=== PATIENT | female | born 1945 | race Caucasian/White ===

== ENCOUNTER 2016-11-28 20:27 | Emergency (ER) | payer OTHER ==
[~2016-11-28 20:27] MED LIST: ALBUTEROL 3 ML3 ML INH; AMLODIPINE10 MG PO; FENTANYL TR50 MCG/HR TD; HYDROMORPHONE HC2 MG PO; HYDROMORPHONE HY4 MG PO; MEDROL DOSEPAK1 PAC PO; NASONEX0.05 MG/Ac NAS; NOVAPLUS FE75 MCG/HR TOP; OXYBUTYNIN5 MG PO; PAROXETINE HYDR40 MG PO; PREDNISONE 10MG10 M1 PO; SPIRIVA1 PUF INH; SYMBICORT 160/41 PUF INH; VENTOLIN H0.09 MG/Ac INH; VIBRAMYCIN 100100 MG PO; ZITHROMAX Z-PA250 M1 PO
--- NOTE | 2016-11-28 20:46 | ED GENERAL ADULT ---
History of Present Illness General Chief Complaint: Altered Mental Status Stated Complaint: BIBA AMS Source: old records, EMS Exam Limitations: clinical condition Allergies Coded Allergies: Sulfa (Sulfonamide Antibiotics) (HIVES 11/12/15) cefazolin (UNKNOWN 11/12/15) ciprofloxacin (From CIPRO) (HIVES 11/12/15) phenytoin (HIVES 11/12/15) shellfish derived (HIVES 11/12/15) Reconcile Medications Albuterol Sulfate (Proventil) 2.5 MG/3 ML NEB 3 ML INH Q6-PRN sHORTNESS OF BREATH Amlodipine Besylate (Amlodipine) 10 MG TAB 1 TAB PO DAILY BP (Reported) Budesonide/Formoterol Fumara (Symbicort 160-4.5 Mcg Inhaler) 160 MCG/4.5 MCG PUF 2 PUF INH BID SHORTNESS OF BREATH Doxycycline (Vibramycin 100 MG Cap) 100 MG CAP 1 CAP PO BID Infection Stop taking this medication on after evening dose Fentanyl (Fentanyl Transdermal System) 50 MCG/HR TDM 1 PATCH TD DAILY PAIN MANAGEMENT HYDROMORPHONE HCL (Hydromorphone HCl) 2 MG TAB 1 TAB PO TID PAIN 5-10 Mometasone Furoate (Nasonex) 0.05 MG/Actuation SPR 2 SPRAY FELIPA DAILY SINUSITIS Oxybutynin Chloride 5 MG TAB 1 TAB PO DAILY PRN PAIN (Reported) PAROXETINE HCL (Paroxetine Hydrochloride) 40 MG TAB 1 TAB PO DAILY MENTAL HEALTH (Reported) Prednisone 10 MG TAB 1 TAB PO TAPER COPD 09/01/15 4 TABS 09/02/15-09/04/15 3 TABS 09/05/15-09/07/15 2 TABS 09/08/15-09/10/15 1 TAB AND THEN STOP TAKING THIS MEDICATION Tiotropium [place] (Spiriva) 1 PUF PUF 1 PUFF INH DAILY SHORTNESS OF BREATH Triage Nurses Notes Reviewed? yes HPI: Patient lives at home alone. Patient's neighbor checks on her every evening. Her neighbor saw her last night and everything was okay. Today the neighbor called the patient's brother stating that her paper was still outside of her house which was very unusual. The neighbor had gone over to the house multiple times during the doorbell with no answer. The neighbor called brother again this evening and he went over to check on her. He gained access to the house and found her face first on the bedroom floor in a pool of vomit. Patient had a GCS of 6 upon EMS arrival. Patient not following any commands and EMS was unable to obtain vital signs. Patient brought in for evaluation. Upon arrival to the emergency department the patient was found to be hypotensive and hypothermic. Patient had no gag reflex. Patient intubated for airway protection. Patient given Narcan without any change. (JJ LAURA,THOMAS Nascimento) Vital Signs & Intake/Output Vital Signs & Intake/Output Vital Signs Date Time Temp Pulse Resp B/P B/P Pulse O2 O2 Flow FiO2 Mean Ox Delivery Rate 11/29 0044 70 11/29 0010 45 11/29 0001 60/45 11/28 2221 52 24 97/49 98 Ventilator 45% 11/28 2214 75 11/28 2214 87/49 11/29 2203 92/54 11/28 2138 46 11/28 2125 72/48 11/28 2112 75 11/28 2109 78/56 11/28 2052 44 11/28 2026 40 22 82/64 Ventilator 75% 11/28 2026 94 Ventilator 75% ED Intake and Output 11/29 0000 11/28 1200 Intake Total Output Total 5 Balance -5 Output, Urine 5 ED Sepsis Exam Date of Focused Sepsis Exam: 11/28/16 Time of Focused Sepsis Exam: 2019 Sepsis Cardiac Exam: Regular Rate/Rhythm Sepsis Resp Exam: Ronchi Sepsis Cap Refill Exam: >2 sec Sepsis Peripheral Pulse Exam: Weak Sepsis Peripheral Pulse Location: Radial Sepsis Skin Color Exam: Cyanotic, Mottled, Pale Skin Temp/Moisture Exam: Cool/Dry (JJ LAURA,THOMAS Nascimento) Past History Travel History Traveled to [place] past 21 day No Medical History Any Pertinent Medical History? see below for history Neurological: NONE EENT: NONE Cardiovascular: hypertension Respiratory: COPD Gastrointestinal: GANGRENOUS COLON, HAS ILLEOSTOMY Hepatic: NONE Renal: OVERACTIVE BLADDER Musculoskeletal: NONE Psychiatric: depression Endocrine: NONE Blood Disorders: NONE Cancer(s): NONE History of MRSA: No History of VRE: No History of CDIFF: No Pneumonia Vaccine: 08/17/12 Influenza Vaccine: 05/06/15 Surgical History Surgical History: non-contributory Psychosocial History Who do you live with Patient/Self Services at Home None What is your primary language Turkish Tobacco Use: Current Daily Use ETOH Use: UNKNOWN Illicit Drug Use: UNKNOWN Family History Family History, If Any: FATHER FHx: lung cancer BROTHER FH: stroke SISTER Abdominal aortic aneurysm repair Hx Contributory? No (JJ LAURA,THOMAS Nascimento) Review of Systems Review of Systems Constitutional: Reports: see HPI. (JJ LAURA,THOMAS Nascimento) Physical Exam Physical Exam General Appearance: sedated, lethargic, severe distress Head: atraumatic Eyes: Bilateral: PERRL, EOMI. Ears, Nose, Throat: normal pharynx Neck: normal inspection, supple, full range of motion Respiratory: rhonchi, respiratory distress Cardiovascular: regular rate/rhythm Peripheral Pulses: 1+ radial (R), 1+ radial (L) Gastrointestinal: normal bowel sounds, soft, THERE IS BLOOD IN HER OSTOMY Extremities: slow capillary refill Neurologic/Psych: NO RESPONSE TO bABINSKI, REFLEXES ARE 1+, PATIENT WITHDRAWS TO PAIN Skin: cyanosis, mottled Lymphatic: no anterior cervical eboni Core Measures ACS in differential dx? Yes CVA/TIA Diagnosis: No Severe Sepsis Present: Yes BC x2: Yes Lactic Acid x2: Yes IV ABX Broad Spectrum: Yes NS/LR Started: Yes Septic Shock Present: Yes (JJ LAURA,THOMAS Nascimento) Progress Differential Diagnoses I considered the following diagnoses in my evaluation of the patient: [Septic shock, PR, rhabdomyolysis, drug intoxication, alcohol intoxication, trauma] Diagnostic Imaging: Viewed by Me: CT Scan. Discussed w/RAD: CT Scan. Radiology Impression: PATIENT: LEONARDO LEWIS PRESENT AGE: 71 PATIENT ACCOUNT NO: [id number] : 44 LOCATION: [facility] ORDERING PHYSICIAN: THOMAS GARDNER MD SERVICE DATE: 11/28/16 EXAM TYPE: CAT - CT CERV SPINE WO IV CONTRAST; CT HEAD WO IV CONTRAST EXAMINATION: CT HEAD WITHOUT CONTRAST CT CERVICAL SPINE WITHOUT CONTRAST CLINICAL INFORMATION: Unresponsive COMPARISON: CT head 07/10/2011. CT cervical spine 02/21/2014 TECHNIQUE: Imaging was performed from the skull base to vertex without intravenous administration of contrast. In addition, helical noncontrast CT imaging was acquired through the cervical spine and source images were reviewed along with axial reconstructions and sagittal and coronal MPRs. DLP: 939.68 mGy- cm FINDINGS: HEAD: Status post right parietal craniotomy. No intracranial mass, hemorrhage, or midline shift is visualized. No extra-axial collections are identified. There is atrophy with prominence of the ventricles and the sulci and hypodensity of the periventricular white matter due to chronic small vessel ischemic disease. There is vascular calcifications of the internal carotid arteries bilaterally. Air-fluid level in the right maxillary sinus. The mastoid air cells and middle ear cavities are normally aerated. Old fracture of the inferior floor of the left orbit unchanged since CAT scan 07/10/2011 CERVICAL SPINE: There are chronic changes. Patient has fusion with anterior plate and screw from C4 to C7. There is a nonunited transverse fracture through the base of the dens. There is transpedicular screws at C2-C3. There is degenerative change. There is endplate spurs of the vertebrae at C2-C3 and C3-C4 and C7-T1 and T1-T2. There is multilevel degenerative facet joint arthrosis most significant at the upper cervical spine bilaterally. There is no evidence of acute cervical spine fracture. No pre- or paravertebral soft tissue abnormality is identified. Endotracheal tube in place. There is bilateral apical pleural- parenchymal thickening with emphysematous lucencies of lungs. IMPRESSION: 1. Status post right parietal craniotomy. No acute intracranial pathology. Sinus disease. 2. No CT evidence of acute cervical spine fracture or traumatic subluxation. Status post multilevel cervical spine fusion. Old nonunited fracture of the dens. DICTATED BY: TAZ KAISER MD DATE/TIME DICTATED:11/28/162120 CADDY:ABAD DATE/TIME TRANSCRIBED:11/28/162120 CONFIDENTIAL, DO NOT COPY WITHOUT APPROPRIATE AUTHORIZATION. <Electronically signed in Other Vendor System> SIGNED BY: TAZ KAISER MD 11/28/162136 Initial ED EKG: NSR, nonspecific ST T wave chg Prior EKG: unchanged Rhythm Strip: normal sinus rhythm Comments: Patient's brother is at her bedside with paperwork showing that she would not want to be intubated, resuscitated or artificial hydration. At this point he would like to wait for her blood work and discussed with their other brother prior to making a decision about extubation. Discussed with radiologist. CAT scan of the chest abdomen pelvis has been read however there is a problem with system on viewing the dictated results. The ET tube is in proper placement. There are opacities in both lungs consistent with either multilobar pneumonia versus aspiration pneumonia. There is signs of chronic pancreatitis but no acute inflammation. There are multiple rib fractures of unknown age. There is one dilated loop of small bowel with an air- fluid level with no transition point. Clinically the patient appears to be going into DIC. Laboratory continues to refuse to run her blood work because they keep saying that her specimens were hemolyzed despite multiple different blood draws. The lab has been informed multiple times how septic the patient is an that clinically she appears to be in DIC. They continued to refuse to when the blood work. Lab findings and the potentially hemolyzed specimen. Patient is in DIC. Laboratory data shows rhabdomyolysis, multiorgan failure. This was discussed with the patient's 2 brothers. They then called her son in [place]. The decision is made to terminally extubate the patient. Patient extubated. The tremors have been turned off. The family is at the bedside. Patient given 2 mg of IV morphine. Patient went asystolic with no respirations. No heart sounds. Patient pronounced at 0 134 with family at bedside. (JJ LAURA,THOMAS Nascimento) Plan of Care: Orders Procedure Date/time Status EXTUBATE 11/29 0115 Complete ARTERIAL BLOOD GAS (GEN) 11/29 0045 Complete VENTILATOR PARAMETERS 11/29 0044 Complete ARTERIAL BLOOD GAS (GEN) 11/29 0015 Complete LACTIC ACID 11/29 0013 Active FIBRINOGEN LEVEL 11/28 2357 Active D-DIMER 11/28 2357 Active PARTIAL THROMBOPLASTIN TIME 11/28 223 Active PROTHROMBIN TIME 11/28 223 Active Restraint- Medical 11/28 2228 Active VENTILATOR PARAMETERS 11/28 2220 Complete VENTILATOR PARAMETERS 11/28 2145 Complete BLOOD CULTURE 11/28 211 Active LACTIC ACID 11/28 2112 Active ARTERIAL BLOOD GAS (GEN) 11/28 2042 Complete Telemetry/Class B Driver 11/28 204 Active [place], Insertion/Removal/Asses 11/28 2042 Active CULTURE,URINE 11/28 2042 Active URINE DRUGS OF ABUSE 11/28 2042 Active URINALYSIS 11/28 204 Complete TROPONIN LEVEL 11/28 204 Active ETHANOL 11/28 204 Active COMPREHENSIVE METABOLIC PANEL 11/28 204 Active CREATINE PHOSPHOKINASE 11/28 204 Active CBC WITHOUT DIFFERENTIAL 11/28 2042 Complete VENTILATOR PARAMETERS 11/29 2039 Complete EKG 04/24 2031 Active LACTIC ACID 11/28 2026 Active Current Medications Sig/Adele Start time Last Medication Dose Stop Time Status Admin Sodium Bicarbonate 150 MEQ Q13H 11/28 2144 AC 11/28 (Sodium Bicarbonate 2114 8.4%) Dextrose/Water 1,000 ML (D5W 1000) Norepinephrine 4 MG Q24H 11/28 2114 AC 11/28 (Levophed Drip) 2114 Sodium Chloride 250 ML (Normal Saline 0.9%) Laboratory Tests 11/29/16 0045: pH 6.87 *L, pCO2 83 *H, pO2 77 L, HCO3 15 L, ABG O2 Sat (Measured) 89.0 L, P- 50 (Temp Corrected) N, Carboxyhemoglobin 0.8 L, O2 Concentration % 70%, Temperature 98.6, Respiration Rate 26, O2 Delivery Method ESPRIT, Vent Mode AC, Expiratory Pressure 0, Tidal Volume 550, Phlebotomy Draw Site L FEM 11/29/16 0015: pH 6.87 *L, pCO2 88 *H, pO2 50 *L, HCO3 16 L, ABG O2 Sat (Measured) 73.0 L, P- 50 (Temp Corrected) N, Carboxyhemoglobin 1.4 L, O2 Concentration % 45%, Temperature 98.6, Respiration Rate 24, O2 Delivery Method ESPRIT, Vent Mode AC, Expiratory Pressure 0, Tidal Volume 550, Phlebotomy Draw Site RIGHT BRACHIAL 11/28/16 9895: Sodium Pending, Potassium Pending, Chloride Pending, Carbon Dioxide Pending, Anion Gap Pending, BUN Pending, Creatinine Pending, BUN/Creatinine Ratio Pending , Glucose Pending, Lactic Acid Pending, Calcium Pending, Total Bilirubin Pending , AST Pending, ALT Pending, Alkaline Phosphatase Pending, Creatine Kinase Pending, Troponin I Pending, Total Protein Pending, Albumin Pending, Globulin Pending, Albumin/Globulin Ratio Pending, Serum Alcohol Pending 11/28/16 2325: Fibrinogen Activity Cancelled, D-Dimer Cancelled 11/28/162134: pH 6.97 *L, pCO2 70 *H, pO2 415 H, HCO3 11 L, ABG O2 Sat (Measured) 96.0, P-50 (Temp Corrected) Y, Carboxyhemoglobin 1.4 L, O2 Concentration % 75%, Temperature 95.0 L, Respiration Rate 22, O2 Delivery Method ESPRIT VENT, Vent Mode AC, Tidal Volume 550, Phlebotomy Draw Site L FEM 11/28/162026: CBC w Diff MAN DIFF ORDERED, RBC 3.84 L, MCV 107.1 H, MCH 34.4 H, RDW 15.6 H , MPV 7.0 L, Segmented Neutrophils 74, Band Neutrophils 7 H, Lymphocytes 12 L , Monocytes 5, Metamyelocytes 2 H, Nucleated RBCs 1 H, Platelet Estimate VERIFIED BY SMEAR, Normochromic RBCs VERIFIED, Anisocytosis 1+, PUBS MCHC 32.1 L, Fld Total RBCs Counted 100 11/28/16 1105: Urinalysis MOD H, Urine Color FLORENCE, Urine Clarity CLDY H, Urine pH 6.0, Ur Specific [place] >= 1.030, Urine Protein >=300 H, Urine Ketones 15 H, Urine Nitrite NEG, Urine Bilirubin NEG, Urine Urobilinogen 0.2, Ur Leukocyte Esterase NEG, Ur Microscopic SEDIMENT EXAMINED, Urine RBC 1-3, Urine WBC RARE, Ur Epithelial Cells FEW, Urine Bacteria RARE H, Hyaline Casts 1-3 H, Urine Mucus FEW, Urine Hemoglobin LARGE H, Urine Glucose NEG Microbiology 11/28 2340 BLOOD: Blood Culture - RECD 11/28 2324 BLOOD: Blood Culture - RECD 11/28 2112 LOWER RESP: Respiratory Culture - CAN Cancelled: NUMBER OF SQUAMOUS CELLS INDICATES POOR QUALITY SPECIMEN 11/28 2112 LOWER RESP: Gram Stain - CAN Cancelled: NUMBER OF SQUAMOUS CELLS INDICATES POOR QUALITY SPECIMEN 11/28 2042 URINE ROUT: Urine Culture - ORD Departure Departure Disposition: Condition: Critical Clinical Impression Primary Impression: Septic shock Secondary Impressions: Multiple organ failure Referrals: NAHEED HURD MD (PCP/Family) Departure Forms: Customer Survey General Discharge Information (JJ LAURA,THOMAS Nascimento) Procedures Intubation Time of Intubation: 2029 Intubation Method: orotracheal Tube Size (cm): 7.5 Medications: ETOMIDATE Breath Sounds After Intubation: equal Intubation Complications: no complications Post Intubation Xray? Yes (CT SCAN) Progress: In-line C-spine stabilization maintained throughout intubation (JJ LAURA,THOMAS Nascimento) Central Line Central Line Lumen: triple Central Line Procedure: Yes: bentadine prep?, sterile drapes applied, sterile dressing applied. Central Line Position: femoral (R) Anesthesia: local Complications: none Central Line Post Position: sutured, good blood return Progress: Central line performed by KENY Pennington, RVU credit goes to KENY Pennington (MINGO BUSTILLO,LIYA) Critical Care Note Critical Care Note Critical Care Time: mins: (75 MIN) (JJ LAURA,THOMAS Nascimento)
--- NOTE | 2016-11-28 21:37 | CT SCAN REPORT ---
EXAMINATION: CT HEAD WITHOUT CONTRAST CT CERVICAL SPINE WITHOUT CONTRAST CLINICAL INFORMATION: Unresponsive COMPARISON: CT head 07/10/2011. CT cervical spine 02/21/2014 TECHNIQUE: Imaging was performed from the skull base to vertex without intravenous administration of contrast. In addition, helical noncontrast CT imaging was acquired through the cervical spine and source images were reviewed along with axial reconstructions and sagittal and coronal MPRs. DLP: 939.68 mGy-cm FINDINGS: HEAD: Status post right parietal craniotomy. No intracranial mass, hemorrhage, or midline shift is visualized. No extra-axial collections are identified. There is atrophy with prominence of the ventricles and the sulci and hypodensity of the periventricular white matter due to chronic small vessel ischemic disease. There is vascular calcifications of the internal carotid arteries bilaterally. Air-fluid level in the right maxillary sinus. The mastoid air cells and middle ear cavities are normally aerated. Old fracture of the inferior floor of the left orbit unchanged since CAT scan 07/10/2011 CERVICAL SPINE: There are chronic changes. Patient has fusion with anterior plate and screw from C4 to C7. There is a nonunited transverse fracture through the base of the dens. There is transpedicular screws at C2-C3. There is degenerative change. There is endplate spurs of the vertebrae at C2-C3 and C3-C4 and C7-T1 and T1-T2. There is multilevel degenerative facet joint arthrosis most significant at the upper cervical spine bilaterally. There is no evidence of acute cervical spine fracture. No pre- or paravertebral soft tissue abnormality is identified. Endotracheal tube in place. There is bilateral apical pleural-parenchymal thickening with emphysematous lucencies of lungs. IMPRESSION: 1. Status post right parietal craniotomy. No acute intracranial pathology. Sinus disease. 2. No CT evidence of acute cervical spine fracture or traumatic subluxation. Status post multilevel cervical spine fusion. Old nonunited fracture of the dens.
[2016-11-28 22:23] LABS: HEMATOCRIT 41.2 % (37-47); MEAN CORPUSCULAR HGB 34.4 PG (27.0-31.0); MEAN CORPUSCULAR HGB CONC 32.1 G/DL (33.0-37.0); MEAN CORPUSCULAR VOLUME 107.1 FL (81.0-99.0); PLATELET COUNT 217 /CUMM (130-400); RBC DISTRIBUTION WIDTH 15.6 % (11.5-14.5); RED BLOOD CELL CT 3.84 /CUMM (4.20-5.40); WHITE BLOOD CELL COUNT 14.4 /CUMM (4.8-10.8)
--- NOTE | 2016-11-28 23:53 | CT SCAN REPORT ---
EXAMINATION: CT CHEST, ABDOMEN AND PELVIS WITHOUT CONTRAST CLINICAL INFORMATION: Unresponsive COMPARISON: CT chest 10/12/2015 CT scan abdomen 07/19/2013. CT scan abdomen pelvis 07/03/2013 TECHNIQUE: Multidetector volumetric CT imaging of the chest, abdomen and pelvis was obtained without IV or oral contrast. Coronal and sagittal reformatted images are performed at CT scanner DLP: 444.28 mGy-cm. FINDINGS: CT CHEST: Lungs: Marked jin emphysematous lucencies throughout the lung. This mild peribronchial thickening and scattered reticular nodular opacities. Small peripheral patchy airspace disease in the posterior medial left upper lobe mid left lower lobe and medial right lower lobe. These lung opacities are new since the CAT scan of 10/12/2015 and suspicious of small regions of multifocal airspace disease. Mediastinum: Status post intubation. No mediastinal fluid collection or hematoma. The esophagus is dilated with air-fluid level. Atherosclerotic vascular calcifications of aorta and great vessels and coronary arteries. Pleura: There is no pleural effusion. No pleural mass or thickening. Axilla: No lymphadenopathy. CT ABDOMEN AND PELVIS: LIVER, GALLBLADDER, AND BILIARY TREE: The liver is normal in size, shape, and attenuation. No focal hepatic lesion or biliary ductal dilatation is present. The gallbladder is unremarkable with no evidence of radiopaque gallstones, gallbladder wall thickening, or obvious pericholecystic inflammatory changes. PANCREAS: Pancreas is atrophic. Coarse calcifications in the pancreatic body and tail and head consistent with chronic pancreatitis. No inflammation around the pancreas. SPLEEN: Spleen normal in size and contour. No focal lesion. ADRENAL GLANDS: Adrenal glands are normal in size. No focal mass. KIDNEYS AND URETERS: Bilateral renal cysts. Largest cyst in the right kidney measures 4 cm transverse. Largest cyst in left kidney is in the midpole measuring 2 cm. No renal or ureteral calculus. BLADDER: Unremarkable. GASTROINTESTINAL TRACT: Status post cholecystectomy. Ileostomy right side of abdomen. Mild dilatation of proximal small bowel loops with air-fluid levels. No sharp transition point however. Bowel pattern nonspecific. No bowel wall thickening or edema. MESENTERY: No focal inflammation. No free fluid. No free air. ABDOMINAL WALL: Ileostomy right anterior abdominal wall. LYMPH NODES: Normal. VASCULAR: Atherosclerotic vascular wall calcifications of aorta and iliac vessels. PELVIC VISCERA: Uterus is absent. OSSEOUS STRUCTURES: Status post fusion L4-S1 with transpedicular screws. Compression screw in left hip. Multilevel degenerative change of the spine with disc height narrowing and endplate spurs of vertebrae. Subtle cortical deformity of the anterior right fourth through seventh ribs suspicious of nondisplaced fracture. There is old healed fracture of the right posterior 10, 11 and 12th ribs. There is also old healed fractures of the posterior left seventh through 11th ribs healed fracture of the left anterior third through sixth ribs. Old healed fracture of the midshaft of left and right clavicle IMPRESSION: 1. Status post intubated. 2. Emphysematous changes of lungs. 3. Patchy bilateral airspace opacities can be acute multifocal pneumonia since prior CAT scan 10/12/2015. 4. Dilated esophagus with air-fluid level. Aspiration may be etiology for the airspace opacities. 5. Status post cholecystectomy. Ileostomy right side of abdomen. Mildly dilated small bowel loops with air-fluid levels. No sharp transition point. Bowel pattern is nonspecific. 6. Changes of chronic pancreatitis. No acute inflammation of the abdomen or pelvis. 7. Possible nondisplaced acute fractures of the right anterior fourth through seventh ribs. Multiple healed old rib fractures bilateral. Old healed fracture of the left and right clavicle
[2016-11-29 00:01] VITALS: BP 60/45
== END 2016-11-29 01:34 | disposition expired ==
LOC: ERH 20:27
PROVIDERS: Emergency Medicine
DX: R65.21 Severe sepsis with septic shock (principal); R06.00 Dyspnea, unspecified; I95.9 Hypotension, unspecified; R11.10 Vomiting, unspecified
CPT/HCPCS: 1298; 1336; 1344; 1387; 1409; 74176; 80307; 81001; 87040; 87070; 87071; 87086; 93005; 93010; 94799; 96374; 96375; 99291; G0480; J7040; J7060